=== PATIENT | female | born 1955 | race Caucasian/White ===

== ENCOUNTER → 2018-12-13 | Emergency (ER) | payer BC ==
[~2018-12-13] VITALS: Ht 167.6 cm; Wt 59.0 kg
[~2018-12-13] MED LIST: AUGMENTIN 875-1 EACH PO; CLONAZEPAM0.5 MG PO; CRUTCH1 EACH; ESTRACE0.5 MG PO; ESTRACE1 MG PO; LEVOTHROID50 MCG PO; MAXZIDE 37.5 MG-1 EA PO; OMEPRAZOLE20 MG PO; PERCOCET 5-3251 EACH PO; PERCOCET 7.5-31 EACH PO; PROVENTIL HFA6.7 GM PO; SEROQUEL300 MG PO; ZOLOFT100 MG PO
--- OUTSIDE RECORDS SUMMARY | 2018-12-13 19:00 | XMS ---
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 Melvina VISIT COUNT (12 MO.) 1 OZIEL Mckenna TOTAL 1 NOTE: Visits indicate total known visits. ED/UCC VISIT TRACKING (12 MO.) 12/13/2018 18:57 [facility] [place] TYPE: Emergency COMPLAINT: - ABD PAIN INPATIENT VISIT TRACKING (12 MO.) No inpatient visits to display in this time frame [id number]
== END ==
LOC: ED 18:56
DX: R10.32 Left lower quadrant pain (principal); E03.9 Hypothyroidism, unspecified; K21.9 Gastro-esophageal reflux disease without esophagitis; Z87.891 Personal history of nicotine dependence; Z90.710 Acquired absence of both cervix and uterus; Z88.8 Allergy status to other drugs, medicaments and biological substances; Z88.1 Allergy status to other antibiotic agents; Z79.899 Other long term (current) drug therapy
CPT/HCPCS: 74177; 80053; 83690; 85025; 96361; 99284-25; J1170; J2405; J7030; Q9967

== ENCOUNTER 2021-03-22 22:29 | Emergency (ER) | payer OTHER, BC ==
[~2021-03-22] VITALS: Ht 167.6 cm; Wt 60.8 kg
[~2021-03-22 22:29] MED LIST changes: +HYDROCODON-ACE1 EA11 PO; +MULTIVITAMINS1 EAC8 PO; +NEXIUM20 MG PO; +REQUIP XL2 MG PO; +XANAX0.5 MG PO
--- OUTSIDE RECORDS SUMMARY | 2021-03-22 22:32 | XMS ---
PreManage Notification: SIDDHARTHA FRAZIER Security Delinquent Account Clerk Events No recent Security Events currently on file CRITERIA MET - ADP CARE PROVIDERS KERLINE YANG [facility] Current PHONE: [phone] Felecia has no Care Guidelines for this patient. Melvina VISIT COUNT (12 MO.) 1 OZIEL Mckenna TOTAL 1 NOTE: Visits indicate total known visits. ED/UCC VISIT TRACKING (12 MO.) 03/22/2021 22:30 [facility] [place] TYPE: Emergency COMPLAINT: - DIZZY, FALL INPATIENT VISIT TRACKING (12 MO.) No inpatient visits to display in this time frame [id number]
[2021-03-22] MEDS ORDERED: VALACYCLOVIR500 MG PO (22:51)
[2021-03-22] MEDS ORDERED: VICODIN HP 10-1 EAC1 PO (22:52)
[2021-03-22] MEDS ORDERED: LISINOPRIL2.5 MG PO (22:55)
[2021-03-23] MEDS ORDERED: FAMCICLOVIR500 MG PO (01:22)
--- NOTE | 2021-03-24 18:05 | EKG ---
[facility] [address] [facility] [place] [address] Signed Sinus rhythm with premature atrial complexes Cannot rule out Inferior infarct , age undetermined Prolonged QT Abnormal ECG When compared with ECG of 24-AUG-2019 08:35, premature ventricular complexes are no longer present premature atrial complexes are now present Minimal criteria for Inferior infarct are now present QT has lengthened Confirmed by SANJU JUAREZ MD ([id number]) on 03/24/2021 6:05:30 PM Electronically Signed By: SANJU JUAREZ MD 03/24/21 180 PATIENT NAME: SIDDHARTHA FRAZIER Electrocardiogram DATE OF : 59 PHYSICIAN: SANJU JUAREZ MD REPORT #: [id number] REPORT IS CONFIDENTIAL AND NOT TO BE RELEASED WITHOUT AUTHORIZATION
== END 2021-03-23 02:31 | disposition home or self-care (01) ==
LOC: ED 22:29
DX: R55 Syncope and collapse (principal); E03.9 Hypothyroidism, unspecified; F17.200 Nicotine dependence, unspecified, uncomplicated; Z88.8 Allergy status to other drugs, medicaments and biological substances; Z88.6 Allergy status to analgesic agent; Z88.1 Allergy status to other antibiotic agents; Z79.899 Other long term (current) drug therapy
CPT/HCPCS: 80053; 81001; 85025; 87077; 87088; 87186; 93005; 93010; 99284-25; J7030; J7121

== ENCOUNTER 2021-11-28 06:40 | Day surgery (SDC) | payer OTHER ==
[~2021-11-28] VITALS: Ht 167.6 cm; Wt 68.0 kg
[~2021-11-28 06:40] MED LIST changes: +EFFEXOR XR150 MG PO; +FAMCICLOVIR500 MG PO; +LISINOPRIL2.5 MG PO; +VALACYCLOVIR500 MG PO; +VICODIN HP 10-1 EAC1 PO
[2021-11-28] MEDS ORDERED: HYDROCODON-ACE1 EA11 PO (09:26)
[2021-11-28] MEDS ORDERED: SENNA LAX8.6 MG PO (09:27)
--- NOTE | 2021-11-28 09:30 | NUR ---
11/28/21 0930 Celeste Mejia 0923- PT ARRIVES TO PACU EASILY AROUSABLE TO VERBAL STIMULI. PT INSTANTLY FALLS TO SLEEP WHEN NOT BEING STIMULATED. RESP EVEN AND UNLABORED. OXYGEN SAT HIGH 90'S TO 100% ON 6L VIA MASK. 0928- PROFESSOR OF PSYCHOLOGY AWARE OF PT'S BP. NEW ORDERS RECEIVED.
--- NOTE | 2021-11-28 10:14 | NUR ---
PT IS ALERT, ORIENTED AND ANXIOUS. PT DEALING WITH SOME EMOTIONAL ISSUES ASSOCIATED WITH HER INJURY RESULTING IN HER SURGERY TODAY TO REPAIR.GAVE ENCOURAGEMENT, HAD PRAYER WITH PT. HER WILL BE BACK TO PICKUP PT FOLLOWING DC. WILL FOLLOW NEEDED
--- NOTE | 2021-11-28 11:30 | NUR ---
PT PROVIDED MEAL, ATE 80%.
--- NOTE | 2021-12-01 06:59 | OR ---
[facility] [address] [facility] [place], [place] [address] Signed DATE OF OPERATION: 11/28/2021 SURGEON: Olga Rivera MD PREOPERATIVE DIAGNOSIS: Markedly displaced left distal clavicle fracture. POSTOPERATIVE DIAGNOSIS: Markedly displaced left distal clavicle fracture. PROCEDURE PERFORMED: Open reduction and internal fixation of left clavicle. PATIENT EXPERIENCE COORDINATOR: None. ANESTHESIA: GETA. BLOOD LOSS: 165 mL. IMPLANTS: Synthes four hole hook plate with six screws. BRIEF HISTORY: Siddhartha is a 67-year-old female who suffered a fall, landing on her shoulder, fracturing the distal clavicle at the coracoid. The proximal fragment was markedly displaced and proximally located creating some skin problems. Risks and benefits of operative treatment were discussed with her. Because of the failure rate of type procedure, we elected to proceed with using the clavicle plate with the plan to remove it in three months. Risks, benefits, and alternatives of the procedures were discussed with her and she elected to proceed. DESCRIPTION OF PROCEDURE: Once consent was obtained, she was taken to the operating room. After adequate anesthesia, the left shoulder was prepped and draped in a standard sterile fashion. Her prior shoulder replacement incision was then extended proximally in a saber-type incision over the top of the shoulder just medial to the AC joint. This was carried through the skin and subcutaneous tissue. The marked motion of the distal end of the Electronically Signed By: OLGA RIVERA MD 12/01/21 0659 PATIENT NAME: SIDDHARTHA FRAZIER OPERATIVE REPORT DATE OF : [birth year] REPORT #: [id number] PHYSICIAN: OLGA RIVERA MD PCP: NO PRIMARY CARE PHYSICIAN REPORT IS CONFIDENTIAL AND NOT TO BE RELEASED WITHOUT AUTHORIZATION [facility] [address] [place], [place] [address] Signed proximal fragment was creating a seroma and this was entered. The entire deltoid was avulsed from the clavicle. The distal end was then mobilized from the surrounding soft tissue and scar tissue was removed. We were easily able to reduce the fragments together and clamp them. At that point, I felt that a regular plate would not work due to her osteopenia and the small fragment that was left. We elected to proceed then with clavicle hook plate. The hook plate was selected and the acromion posterior to the AC joint was opened up to allow the hook to slide under the acromion. We then positioned it and it fit quite well. Once we got it in position and aligned it properly, the plate was held with a push-pull device. Radiograph showed good reduction. We then placed two 4-0 cancellous screws in the distal fragment, one in the proximal and three cortical screws in the medial fragment. Excellent purchase was obtained in the bone for the most part. The clavicle was quite stable during this procedure, it was felt that nothing else was needed to be done. The wound was copiously irrigated with antibiotic solution. The deltoid was closed using #1 Vicryl in an interrupted fashion. The subcutaneous tissue was closed with 2-0 Stratafix, and 3-0 Stratafix for the skin. Steri-Strips were applied. The wound was dressed with Acticoat 7 dressing. She was awakened, taken to the recovery room in satisfactory condition. All sponge, needle, and instrument counts were correct. Olga Rivera MD BA/RCL /[id number] Copies: ~ Electronically Signed By: OLGA RIVERA MD 12/01/21 0659 PATIENT NAME: SIDDHARTHA FRAZIER OPERATIVE REPORT DATE OF : [birth year] REPORT #: [id number] PHYSICIAN: OLGA RIVERA MD PCP: NO PRIMARY CARE PHYSICIAN REPORT IS CONFIDENTIAL AND NOT TO BE RELEASED WITHOUT AUTHORIZATION
== END 2021-11-28 12:50 | disposition home or self-care (01) ==
LOC: DS 06:40
PROVIDERS: ATTEND Specialist
PROC: 0PSB04Z Reposition Left Clavicle with Internal Fixation Device, Open Approach (ICD-10-PCS; principal; 2021-11-28 08:30)
DX: S42.032A Displaced fracture of lateral end of left clavicle, initial encounter for closed fracture (principal); S22.32XA Fracture of one rib, left side, initial encounter for closed fracture; W03.XXXA Other fall on same level due to collision with another person, initial encounter; M85.80 Other specified disorders of bone density and structure, unspecified site; Z96.643 Presence of artificial hip joint, bilateral; Z96.612 Presence of left artificial shoulder joint
CPT/HCPCS: 62320; 64415; 73000; 76942; C1713; J0690; J1100; J2001; J2250; J2405; J2704; J2795; J3010; J7121

== ENCOUNTER 2022-01-02 07:02 | Day surgery (SDC) | payer OTHER ==
[~2022-01-02] VITALS: Ht 167.6 cm; Wt 68.0 kg
[~2022-01-02 07:02] MED LIST changes: +SENNA LAX8.6 MG PO
--- NOTE | 2022-01-02 09:02 | NUR ---
MEDICATED PT FOR PAIN PER ANESTHESIA ORDERS AND EMAR. ASSISTED RELOCATION SERVICES SPECIALIST WITH BLOCKS. PT TOLERATED PROCEDURE WELL.
[2022-01-02] MEDS ORDERED: HYDROCODON-ACE1 EA11 PO (09:51)
--- NOTE | 2022-01-02 09:55 | NUR ---
01/02/22 0955 Joan,Nicol 0907 PT ARRIVED TO PACU ON RA, VSS. PT AWAKE AND TALKING TO RN. PT DENIES PAIN AND NAUSEA.
--- NOTE | 2022-01-02 10:34 | NUR ---
PT AWAKE AND PAIN FREE ON RETURN TO DS FROM PACU. PROVIDED WITH CRACKERS AND WATER. DENIES NAUSEA. ORIENTED TO TIME AND SITUATION. SLING AND ICE IN PLACE.
--- NOTE | 2022-01-02 11:02 | NUR ---
STEADY ON FEET WITH ONE PERSON STAND BY ASSIST FOR AMBULATION TO BR. CONTINUES TO DENY NAUSEA OR PAIN. VOIDS UNMEASURED URINE IN BR. RETURNS TO ROOM 4 AND IS DRESSED WITH ONE RN ASSIST.
--- NOTE | 2022-01-05 07:02 | OR ---
[facility] [address] [place], [place] [address] Signed DATE OF OPERATION: 01/02/2022 SURGEON: Olga Rivera MD PREOPERATIVE DIAGNOSIS: Failed fixation, left clavicle. POSTOPERATIVE DIAGNOSIS: Failed fixation, left clavicle. PROCEDURE PERFORMED: Removal of hardware, left clavicle with irrigation and debridement, deep cultures. CAR WASH ATTENDANT: None. ANESTHESIA: General anesthesia. ESTIMATED BLOOD LOSS: 100 mL. SPECIMENS: Deep tissue cultures and swabs for anaerobic and aerobic including C. acnes. BRIEF HISTORY: Siddhartha is a 67-year-old female, who suffered left clavicle fracture. She underwent uneventful open reduction and internal fixation with hook plate. Approximately a month after the fixation, she presented with clear disengagement of the hook plate and failure of the fixation. She went to her surgeon in [place], who had done her shoulder replacement. He contacted me and requested removal of the plate with deep tissues for C. acnes. We agreed to comply. Risks, benefits, and alternatives were discussed with her and she elected to proceed. DESCRIPTION OF PROCEDURE: Once consent was obtained, she was taken to the operating room. After adequate anesthesia, she was placed in the low beach chair position, all downside pressure points well padded. The skin was prepped and draped in the standard sterile fashion. The prior incision was marked out and three 4 cm incisions opened superiorly. This was carried through skin and subcutaneous tissue. There was extensive erosion of the plate Electronically Signed By: OLGA RIVERA MD 01/05/22 0702 PATIENT NAME: SIDDHARTHA FRAZIER OPERATIVE REPORT DATE OF : [birth year] REPORT #: [id number] PHYSICIAN: OLGA RIVERA MD PCP: NO PRIMARY CARE PHYSICIAN REPORT IS CONFIDENTIAL AND NOT TO BE RELEASED WITHOUT AUTHORIZATION [facility] [address] [place], [place] [address] Signed creating a large cavity, it was filled with fluid. Culture swabs were taken of this in all positions around the plate. The screws were removed from the plate and the plate was removed easily. The bone was then debrided sharply. Multiple tissue and bone samples were taken from six positions, all around the wound. These were passed off for tissue culture. The wound was then copiously irrigated under pulse irrigation with normal saline. We then soaked it with Irrisept and irrigated the Irrisept out with more pulse irrigation. The deltoid was then closed using 0-Monocryl. The subcutaneous tissue with 3-0 Monocryl and the skin with 3-0 nylon in an interrupted fashion. The wound was dressed with an Acticoat 7 dressing. She was awakened and taken to the recovery room in satisfactory condition. All sponge, needle, and instrument counts were correct. Olga Rivera MD BA/RCL /[id number] Copies: ~ Electronically Signed By: OLGA RIVERA MD 01/05/22 0702 PATIENT NAME: SIDDHARTHA FRAZIER OPERATIVE REPORT DATE OF : [birth year] REPORT #: [id number] PHYSICIAN: OLGA RIVERA MD PCP: NO PRIMARY CARE PHYSICIAN REPORT IS CONFIDENTIAL AND NOT TO BE RELEASED WITHOUT AUTHORIZATION
== END 2022-01-02 11:15 | disposition home or self-care (01) ==
LOC: DS 07:02
PROVIDERS: ATTEND Specialist
PROC: 0PPB04Z Removal of Internal Fixation Device from Left Clavicle, Open Approach (ICD-10-PCS; principal; 2022-01-02 08:45)
DX: T84.228A Displacement of internal fixation device of other bones, initial encounter (principal); M81.0 Age-related osteoporosis without current pathological fracture; G89.18 Other acute postprocedural pain; Y79.3 Surgical instruments, materials and orthopedic devices (including sutures) associated with adverse incidents; Z96.643 Presence of artificial hip joint, bilateral; Z96.612 Presence of left artificial shoulder joint
CPT/HCPCS: 64415; 76942; 87205; J0690; J1100; J2001; J2250; J2405; J2704; J2795; J3010; J7121

== ENCOUNTER 2025-09-12 06:31 | Day surgery (SDC) | payer MEDICARE, OTHER ==
[~2025-09-12] VITALS: Ht 167.6 cm; Wt 60.0 kg
[~2025-09-12 06:31] MED LIST changes: +CYCLOBENZAPRINE10 MG PO; +LACTATED RINGER'S 1,000 ML IV SCH
[2025-09-12] MEDS ORDERED: Ropivacaine HCl 0.5% 30 ML VIAL ONE (06:48)
[2025-09-12] MEDS ORDERED: LIDOCAINE HCL 2% 5 ML SDV ONE (06:48)
[2025-09-12] MEDS ORDERED: SODIUM CHLORIDE 0.9% 20 ML IV ONE (06:48)
[2025-09-12 06:57] VITALS: BP 118/67
[2025-09-12] MEDS ORDERED: IBLOOD GLUCOSE TEST STRIP 1 EA TEST VI PRN ×2 (07:00→08:30)
[2025-09-12] MEDS ORDERED: LIDOCAINE HCL 1% 5 ML SDV INJ ONE (07:00)
[2025-09-12] MEDS ORDERED: CEFAZOLIN SODIUM 2 GM in SODIUM CHLORIDE 0.9% 100 ML IV SCH (07:00)
[2025-09-12] MEDS ORDERED: DICLOFENAC SODI75 MG PO (07:02)
[2025-09-12] MEDS ORDERED: ALENDRONATE SOD70 MG PO (07:03)
[2025-09-12] MEDS ORDERED: SERTRALINE HCL100 MG PO (07:03)
[2025-09-12] MEDS ORDERED: QUETIAPINE FUM200 MG PO (07:03)
[2025-09-12] MEDS ORDERED: AMOX TR-K CLV1 EAC1 PO (07:04)
[2025-09-12] MEDS ORDERED: AZITHROMYCIN500 MG PO (07:04)
[2025-09-12] MEDS ORDERED: KETOROLAC TROMETHAMINE 30 MG/ML VIAL ONE (07:31)
[2025-09-12] MEDS ORDERED: DEXAMETHASONE SOD PHOS 10 MG/ML VIAL ONE (07:39)
[2025-09-12] MEDS ORDERED: HYDROCODONE/ACETA 7.5/325 TAB PO PRN (07:45)
[2025-09-12] MEDS ORDERED: fentaNYL citrate 100 MCG/2 ML VIAL ONE (08:02)
[2025-09-12] MEDS ORDERED: DEXAMETHASONE SOD PHOS 4 MG/ML VIAL ONE (08:02)
[2025-09-12] MEDS ORDERED: HYDROmorphone HCL 1 MG/ML SYR IV PRN (08:30)
[2025-09-12] MEDS ORDERED: PROCHLORPERAZINE EDISYLATE 10 MG/2 ML VIAL IV PRN (08:30)
[2025-09-12] MEDS ORDERED: fentaNYL citrate 50 MCG/ML SDV IV PRN (08:30)
[2025-09-12] MEDS ORDERED: NALOXONE HCL 0.4 MG SYR IV PRN (08:30)
--- NOTE | 2025-09-12 08:48 | NUR ---
09/12/25 0848 Babs Waddell 0839: PT ARRIVES TO PACU WITH JAW THRUST PERFORMED BY ACCOUNTING MANAGER ASSISTANT CONTROLLER. REPORT RECEIVED FROM SALES TRADER AND ACCOUNTING MANAGER ASSISTANT CONTROLLER. PT CONNECTED TO MONITORS. CARYN 0845: PT SPONTANEOUSLY WAKES UP. PROTECTING HER OWN AIRWAY.
[2025-09-12 09:19] VITALS: BP 106/54
--- NOTE | 2025-09-12 09:27 | NUR ---
5859 PT ARRIVED TO DAY SURGERY RM 5 FROM PACU VIA STREACHER. PT REPORTS NO PAIN OR NAUSEA AT THIS TIME.VITALS TAKEN. PT BREATHING EQUAL AND UNLABORED. PT HAS WATER AND SNACKS AT BEDSIDE. PT SURGICAL EXTREMITY ELEVATED AND HAS ICE IN PLACE. PT HAS NO NEEDS AT THIS TIME. DISCUSSED DISCHARGE CRITERIA. PT HAS CALL LIGHT WITHIN REACH.
[2025-09-12 10:11] VITALS: BP 115/54
[2025-09-12 11:14] VITALS: BP 152/47
--- NOTE | 2025-09-12 11:37 | NUR ---
1114 HOURLY ROUNDING DONE WITH PT. PT RESTING WITH EYES CLOSED, PT WAKES TO VERBAL STIMULI. PT STATES SHE NEEDS TO URINATE. VITALS TAKEN. IV ASSESSED. PT REPORTS NO PAIN OR NAUSEA. DISCUSSED THE WEIGHT BARING STATUS THAT PT CANNOT PUT WEIGHT ON SURGICAL EXTREMITY. PT ABLE TO USE WALKER TO STAND AND GET TO WHEELCHAIR, PT DEMONSTRATED THAT PT UNDERSTOOD WEIGTH BAREING STATUS. PT WHEELCHED TO BATHROOM VIA WHEELCHAIR. PT ABLE TO USE WALKER TO MOVE TO TOILET. PT ABLE TO VOID 400 MLS OF CLEAR YELLOW URINE. PT BACK TO ROOM SAME WAY PT GOT TO BATHROOM. ASSISTED PT IN GETTING DRESSED. PT HAS BOOT IN PLACE. 1120 DISCHARGE PAPERWORK GONE OVER WITH PT, PT HAS NO QUESTIONS AT THIS TIME. PT STATES THAT HER SPOUSE IS BRINGING HER CRUTCHES AND SHE WILL USE THOSE AT HOME TO AMBULATE. 1126 PT SPOUSE IN ROOM, PT TRANSFERRED TO WHEELCHAIR AND WHEELED TO THE FRONT OF THE HOSPITAL. PT ABLE TO TRANSFER SELF TO CAR, PT HAS ALL PERSONAL BELONGINGS WITH HERSELF AND DISCHARGE PAPERWORK IN HAND.
[2025-09-12] MEDS ORDERED: SEVOFLURANE 250 ML BTL INH ONE (13:39)
--- NOTE | 2025-09-13 10:15 | OR ---
[facility] [address] [facility] [place], [place] [address] Signed DATE OF OPERATION: 09/12/2025 SURGEON: Olga Rivera MD PREOPERATIVE DIAGNOSIS: Lateral malleolus fracture, right ankle. POSTOPERATIVE DIAGNOSIS: Lateral malleolus fracture, right ankle. PROCEDURE PERFORMED: Open reduction and internal fixation, right ankle. LATHER APPRENTICE: None. ANESTHESIA: General. BLOOD LOSS: 50 mL. TOURNIQUET TIME: Zero. IMPLANTS: 3 x 130 FibuLock with two locking screws. BRIEF HISTORY: Siddhartha is a 71-year-old female, who suffered a fall off her couch fracturing her right ankle and her left foot. Because of the need to maintain nonweightbearing on the left foot, we elected to fix the lateral malleolus with FibuLock, which will allow us to weightbear in a boot almost immediately. Risks and benefits of operative treatment were discussed with her and she elected to proceed. DESCRIPTION OF OPERATION: Once consent was obtained, she was taken to the operating room. After adequate anesthesia, she was placed on the OR table. She was placed on a hip bump and the leg was prepped and draped in a standard sterile fashion. The fibula was then marked out under image intensifier guidance. The tip of the fibula was approached through a 1.5 cm Electronically Signed By: OLGA RIVERA MD 09/13/25 1015 PATIENT NAME: SIDDHARTHA FRAZIER OPERATIVE REPORT DATE OF : [birth year] REPORT #: [id number] PHYSICIAN: OLGA RIVERA MD PCP: OFELIA BALDERAS MD REPORT IS CONFIDENTIAL AND NOT TO BE RELEASED WITHOUT AUTHORIZATION [facility] [address] [place], [place] [address] Signed incision, carried through the skin and subcutaneous tissue, bluntly down to the tip of the bone. The 1st guidewire was then advanced from the tip of the fibula up into the body. The fracture was held in reduced position for this. The large reamer was then used to ream the distal fibula. The long guidewire was then advanced after removal of the previous one. The proximal body of the fibula was then reamed using a 3.2 reamer. A 3.0 gee was selected. This was placed through the distal fibular hole and advanced proximally across the fracture in a reduced position engaging the body of the fibula. The proximal wings were then deployed. The two distal locking screws, one lateral and one anterolateral were then placed through separate stab incisions. The insertion guide was then removed. Final radiographs showed anatomic reduction, good placement of the plate and screw lengths. The wounds were copiously irrigated with normal saline, closed with trisha and dressed with Allevyn and an Sebas wrap. She was placed back into a fracture boot. She tolerated the procedure well. All sponge, needle, and instrument counts were correct. Olga Rivera MD BA/RCL /[id number] Copies: ~ Electronically Signed By: OLGA RIVERA MD 09/13/25 1015 PATIENT NAME: SIDDHARTHA FRAZIER OPERATIVE REPORT DATE OF : [birth year] REPORT #: [id number] PHYSICIAN: OLGA RIVEAR MD PCP: OFELIA BALDERAS MD REPORT IS CONFIDENTIAL AND NOT TO BE RELEASED WITHOUT AUTHORIZATION
== END 2025-09-12 11:20 | disposition home or self-care (01) ==
LOC: DS 06:31
PROVIDERS: ATTEND Specialist
PROC: 3E0T3BZ Introduction of Anesthetic Agent into Peripheral Nerves and Plexi, Percutaneous Approach (ICD-10-PCS; 2025-09-12)
PROC: 3E0T3BZ Introduction of Anesthetic Agent into Peripheral Nerves and Plexi, Percutaneous Approach (ICD-10-PCS; 2025-09-12)
PROC: 0QSJ04Z Reposition Right Fibula with Internal Fixation Device, Open Approach (ICD-10-PCS; principal; 2025-09-12 08:15)
DX: S82.61XA Displaced fracture of lateral malleolus of right fibula, initial encounter for closed fracture (principal); W07.XXXA Fall from chair, initial encounter; G89.18 Other acute postprocedural pain; K21.9 Gastro-esophageal reflux disease without esophagitis; I10 Essential (primary) hypertension; E03.9 Hypothyroidism, unspecified; Z88.8 Allergy status to other drugs, medicaments and biological substances; Z88.1 Allergy status to other antibiotic agents
CPT/HCPCS: 01480; 64447; 73600; C1713; C1769; J0688; J1100; J1885; J2003; J2405; J2704; J2795; J3010; J7121